=== PATIENT | female | born 1995 | race Hispanic/Latino ===

== ENCOUNTER 2020-08-29 19:54 | Emergency (ER) | payer OTHER ==
[~2020-08-29] VITALS: Ht 157.5 cm; Wt 61.2 kg
[2020-08-29] MEDS ORDERED: KETOROLAC TROMETHAMINE 30 MG/ML VIAL IV STA (21:44)
[2020-08-30] MEDS ORDERED: PIPERACILLIN/TAZOBACTAM 3.375 GM in SODIUM CHLORIDE 0.9% 50ML 50 ML IV ONE ×2
[2020-08-30] MEDS ORDERED: SODIUM CHLORIDE 0.9% 250ML 250 ML ONE (00:36)
[2020-08-30] MEDS ORDERED: PIPERACILLIN/TAZOBACTAM SOD 2.25 GM VIAL ONE (00:36)
[2020-08-30] MEDS ORDERED: SODIUM CHLORIDE 0.9% 1000ML 1,000 ML IV STA (01:22)
[2020-08-30] MEDS ORDERED: SODIUM CHLORIDE 0.9% 1000ML 1,000 ML ONE (02:51)
== END 2020-08-30 03:48 | disposition short-term general hospital (02) ==
LOC: FSED 21:26
DX: K57.00 Diverticulitis of small intestine with perforation and abscess without bleeding (principal); Z20.822 Contact with and (suspected) exposure to COVID-19
CPT/HCPCS: 74176; 80053; 81003; 81025; 85025; 99284; J1885; J2543; J7030; J7050; U0002

== ENCOUNTER 2021-06-20 12:06 | Emergency (ER) | payer OTHER ==
[~2021-06-20] VITALS: Ht 157.5 cm; Wt 59.6 kg
[2021-06-20] MEDS ORDERED: BACITRACIN-POL3.5 GM OD (12:38)
[2021-06-20] MEDS ORDERED: BACTRIM DS TAB1 EACH PO (12:38)
== END 2021-06-20 12:51 | disposition home or self-care (01) ==
LOC: FSED 12:24
DX: H60.12 Cellulitis of left external ear (principal); K21.9 Gastro-esophageal reflux disease without esophagitis; Z87.19 Personal history of other diseases of the digestive system
CPT/HCPCS: 99282